=== PATIENT | female | born 1950 | race Caucasian/White ===

== ENCOUNTER 2017-02-23 07:51 | Day surgery (SDC) | payer OTHER ==
[2017-02-21 13:50] VITALS: BMI 27.4
[~2017-02-23 07:51] MED LIST: LACTATED RINGERS 1,000 ML IV SCH
[2017-02-23 08:54] VITALS: RESP 16; TEMP 97.1
[2017-02-23] MEDS ORDERED: LIDOCAINE 1% 20 ML VIAL (10MG/ML) FOR IV START INTRADERMA ONE (09:07)
[2017-02-23] MEDS ORDERED: LIDOCAINE 1% INJ 10MG/ML (20 ML MDV) ONE (09:19)
[2017-02-23] MEDS ORDERED: PROPOFOL 10 MG/ML 20 ML VIAL IV ONE (09:19)
--- NOTE | 2017-02-23 09:39 | P.PCN ---
Date of Procedure: 02/23/17 Preoperative Diagnosis: Postoperative Diagnosis: Procedure(s) Performed: BRIEF HISTORY: Patient is a 66-year-old pleasant white female, scheduled for an elective colonoscopy as a part of evaluation for screening for colorectal neoplasia. PROCEDURE PERFORMED: Colonoscopy with snare polypectomy. PREOPERATIVE DIAGNOSIS: Screening for colon cancer. IV sedation per Anesthesia. PROCEDURE: After informed consent was obtained, the patient, was brought into the endoscopy unit. IV sedation was administered by Anesthesia under continuous monitoring. Digital rectal examination was normal. Initially the Olympus CF- 160 flexible video colonoscope was then inserted in the rectum, gradually advanced into the cecum without any difficulty. Careful examination was performed as the scope was gradually being withdrawn. Ileocecal valve and the appendiceal orifice were visualized and appeared normal. Prep was excellent. In the base of the cecum there were 2 polyps measuring 5 mm and 7 mm in size both of which were removed by snare polypectomy. In the ascending colon there was a 1 cm polyp removed by snare polypectomy. The rest of the mucosa of the cecum, ascending colon, transverse colon, descending colon, sigmoid colon, and rectum appeared normal. Retroflexion was performed in the rectum and no lesions were seen. The patient tolerated the procedure well. IMPRESSION: 5 mm and 7 mm cecal polyp serous was snare polypectomy 1 m ascending colon polyp serous was snare polypectomy RECOMMENDATIONS: Findings of this examination were discussed with the patient laboratory. He was advised to follow with the biopsy results. She was advised to have a repeat surveillance colonoscopy in 5 years.. Implants: Indications for Procedure: Operative Findings: Description of Procedure:
[2017-02-23 10:01] VITALS: BP 115/72; PULSE 51
== END 2017-02-23 10:10 | disposition home or self-care (01) ==
LOC: ORWHC2ENDO 07:51
PROVIDERS: ATTEND Internal Medicine Gastroenterology
DX: Z12.11 Encounter for screening for malignant neoplasm of colon (principal); D12.2 Benign neoplasm of ascending colon; D12.0 Benign neoplasm of cecum
CPT/HCPCS: 88305; 45385; J2001; J2704

== ENCOUNTER 2020-12-17 07:56 | Day surgery (SDC) | payer MEDICARE, BC ==
[2020-12-16 08:20] VITALS: BMI 29.8
[2020-12-17 08:33] VITALS: TEMP 97.6
[2020-12-17] MEDS ORDERED: PROPOFOL 10 MG/ML 20 ML VIAL IV ONE (09:08)
[2020-12-17] MEDS ORDERED: LIDOCAINE 1% INJ 10MG/ML (20 ML MDV) ONE (09:08)
--- NOTE | 2020-12-17 09:28 | P.PCN ---
Date of Procedure: 12/17/20 Procedure(s) Performed: BRIEF HISTORY: Patient is a 70-year-old pleasant white white female scheduled for an elective colonoscopy as a part of evaluation of prior history of colon polyps. Last colonoscopy was 5 years ago. PROCEDURE PERFORMED: Colonoscopy with biopsy. PREOPERATIVE DIAGNOSIS: History of colon polyps. IV sedation per Anesthesia. PROCEDURE: After informed consent was obtained, the patient, was brought into the endoscopy unit. IV sedation was administered by Anesthesia under continuous monitoring. Digital rectal examination was normal. Initially the Olympus CF-160 flexible video colonoscope was then inserted in the rectum, gradually advanced into the cecum without any difficulty. Careful examination was performed as the scope was gradually being withdrawn. Ileocecal valve and the appendiceal orifice were visualized and appeared normal. Prep was excellent. In the base of the cecum there was a 2 mm, 3 mm and a 5 mm sessile polyp removed by biopsy. Rest of the mucosa of the cecum, ascending colon, transverse colon, descending colon, sigmoid colon, and rectum appeared normal. Moderate left-sided diverticulosis. Retroflexion was performed in the rectum and no lesions were seen. The patient tolerated the procedure well. IMPRESSION: 2 mm, 3 mm and 5 mm cecal polyp status post removal by cold biopsy Moderate left sided diverticulosis RECOMMENDATIONS: Findings of this examination were discussed with the patient as well as a family. She was advised to follow with the biopsy results. If the biopsy shows an adenoma she can have a repeat colonoscopy in 5 years.
[2020-12-17 09:51] VITALS: BP 149/87; PULSE 55; RESP 16
== END 2020-12-17 10:05 | disposition home or self-care (01) ==
LOC: ORWHC2ENDO 07:56
PROVIDERS: ATTEND Internal Medicine Gastroenterology
DX: Z12.11 Encounter for screening for malignant neoplasm of colon (principal); Z86.010 Personal history of colon polyps; D12.0 Benign neoplasm of cecum
CPT/HCPCS: 88305; 45380; J2001; J2704